=== PATIENT | male | born 1970 | race Caucasian/White ===

== ENCOUNTER → 2021-02-26 07:44 | Outpatient (CLI) | payer OTHER, SELFPAY ==
--- NOTE | ~2021-02-26 | US_ITS ---
EXAMINATION: US abdomen limited EXAM DATE: 02/26/2021 08:15 INDICATION: R79.89 - Other specified abnormal findings of blood chemistry. TECHNIQUE: Multiple grayscale and Doppler images of the abdomen right upper quadrant were obtained (b y a technologist who performed the scan) and subsequently reviewed. There is no prior study for jillian soria. FINDINGS: The pancreatic head and body are normal in appearance. The pancreatic tail is not visualized. There is echogenic liver parenchyma with poor penetration, hepatic steatosis. There are no focal liver le sions identified. There is no evidence of intrahepatic biliary duct dilation. Portal venous flow w as seen in the hepatopedal, normal direction and has normal Doppler waveform. No right-sided hydrone phrosis. Common bile duct measures 6 mm, which is normal. The gallbladder wall is normal in thickness, with ex pected amount of distention. No sonographic evidence of pericholecystic fluid. There is no cholelit hiases. Technologist performing exam reports patient did not demonstrate sonographic Avery's sign. Please note that this sign is less reliable in patients who have received pain medication. IMPRESSION: Hepatic steatosis. Reviewed, dictated and finalized at location D. IMPRESSION: Hepatic steatosis.
== END ==
PROVIDERS: PCP Family Medicine; Visit Provider Physician Assistant
DX: R79.89 Other specified abnormal findings of blood chemistry (principal); K76.0 Fatty (change of) liver, not elsewhere classified
CPT/HCPCS: 76705

== ENCOUNTER 2022-11-16 19:31 | Emergency (ER) | payer OTHER, SELFPAY ==
--- NOTE | ~2022-11-16 | XR_ITS ---
EXAMINATION: XR chest 2V Exam Date/Time: 11/16/2022 20:52 BUSINESS CHANGE MANAGER HISTORY: sob, HEART PALPATATIONS, HTN, DIABETIC Comparison: None available. RESULT: Lines, tubes, and devices: None. Lungs and pleura: Clear. Cardiomediastinal silhouette: Unremarkable. Other: No acute osseous or upper abdominal finding. IMPRESSION: No acute cardiopulmonary process. Reviewed, dictated and finalized at location K. NESS CHANGE MANAGER
[2022-11-16 19:50] VITALS: BP 139/91; PULSE 94; RESP 20; TEMP 36.5; O2SAT 93
--- NOTE | 2022-11-16 19:58 | ECG_ITS ---
Measurements Intervals [place] Rate: 86 P: 6 CA: 184 QRS: 40 QRSD: 109 T: -12 QT: 341 QTc: 408 Interpretive Statements SINUS RHYTHM EARLY PRECORDIAL R/S TRANSITION CONSIDER INFERIOR INFARCT, AGE INDETERMINATE BORDERLINE ST-T WAVE ABNORMALITY- ANTEROLATERAL LEADS ABNORMAL ECG NO PREVIOUS ECG AVAILABLE FOR COMPARISON Electronically Signed On 11-17-2022 7:02:31 GUNITE MIXER by Joseph Nolasco D.O.
[2022-11-16 20:09] VITALS: PULSE 85
[2022-11-16 20:35] LABS: Basophils Absolute Auto 0.1 K/mm3 (0.0-0.1); Basophils Percent Auto 0.8 % (0.2-1.2); Eosinophils Absolute Auto 0.3 K/mm3 (0-0.3); Hematocrit 46.6 % (42.0-52.0); Hemoglobin 16.5 g/dL (14.0-18.0); Immature Granulocyte Absolute 0.07 K/mm3 (0.00-0.031); Immature Granulocyte Percent A 0.7 % (0-0.5); Lymphocytes Absolute Auto 2.73 K/mm3 (0.9-3.2); Lymphocytes Percent Auto 25.4 % (18.3-44.2); Mean Corpuscular HGB Conc 35.4 g/dl (32-36); Mean Corpuscular Volume 95.9 fl (80-100); Mean Platelet Volume 9.8 fl (7.4-10.4); Monocytes Absolute Auto 1.2 K/mm3 (0.1-0.6); Monocytes Percent Auto 10.9 % (2.6-8.5); Neutrophils Absolute Auto 6.4 K/mm3 (1.3-6.7); Neutrophils Percent Auto 59.2 % (45.5-73.1); Platelet Count Result 330 k/mm3 (150-375); Red Blood Count 4.86 M/mm3 (4.6-6.20); Red Cell Distribution Width 11.8 % (11.5-14.5); White Blood Count 10.8 K/mm3 (4.5-10.0)
--- NOTE | 2022-11-16 20:49 | ED.ARRPALP ---
HPI - Arrhythmia/Palpitations General Chief Complaint: Arrhythmia/Palpitations Stated Complaint: heart palpitations Time Seen by Provider: 11/16/22 20:01 History of Present Illness HPI narrative: Patient is a 51-year-old male with a history of hypertension, diabetes presenting with palpitations. Patient states that for the last couple of days he has noticed intermittent palpitations. States that it feels like his heart is skipping beats. States that he has also noticed some mild dyspnea with exertion. He denies any chest pain or lightheadedness. No fevers or chills, cough, abdominal pain, nausea or vomiting, diarrhea, leg swelling. Related Data Allergies Allergy/AdvReac Type Severity Reaction Status Date / Time No Known Allergies Allergy Verified 11/16/22 19:52 Review of Systems Review of Systems: All systems reviewed & are unremarkable except as noted in HPI and below PMFSH Past Medical History Medical History Obesity Family History Family History Mother Family history of chronic obstructive pulmonary disease Social History Social History Smoking status: Former smoker Tobacco type: cigarettes Second hand tobacco smoke exposure: No Smoking end date: 10/23/04 Alcohol intake: current Substance use: never Substance use type: does not use Living arrangements: with family Occupation/Education: occupation Gender identity (if verbalized by the patient): Male Exam Narrative: GENERAL: Well-appearing, well-nourished, and in no acute distress. HEAD: Normocephalic, atraumatic. EYES: PERRLA and EOMI. ENT: Nares clear, no rhinorrhea or epistaxis. Mucous membranes moist. NECK: Supple. CHEST: Clear to auscultation. No respiratory distress. HEART: Regular rate and rhythm. No murmur heard. Normal peripheral pulses. ABDOMEN: Soft, nontender, nondistended, normal active bowel sounds. EXTREMITIES: Normal range of motion. No edema. SKIN: Warm, dry, no rash. NEURO: No focal deficits. Alert and oriented x3. PSYCH: Normal mood and affect. Course Vital Signs Vital signs: Vital Signs Temperature 97.7 F 11/16/22 19:50 Pulse Rate 94 11/16/22 19:50 Respiratory Rate 20 11/16/22 19:50 Blood Pressure 139/91 H 11/16/22 19:50 Pulse Oximetry 93 11/16/22 19:50 Oxygen Delivery Room Air 11/16/22 19:50 Temperature 97.7 F 11/16/22 19:50 Pulse Rate 82 11/16/22 22:24 Respiratory Rate 18 11/16/22 22:24 Blood Pressure 140/73 11/16/22 22:24 Pulse Oximetry 98 11/16/22 22:24 Oxygen Delivery Room Air 11/16/22 19:50 MDM - Arrhythmia/Palpitations MDM Narrative Medical decision making narrative: Patient is a 51-year-old male presenting with palpitations. Patient does slightly hypertensive, otherwise vitals are within normal limits. Exam is unremarkable. EKG per my interpretation shows normal sinus rhythm, normal axis and intervals, inferior Q waves, nonspecific T wave flattening, no ST elevations or depressions. Appears similar to prior EKG in our system. Patient looks dry on labs. Magnesium is low. This was repleted and patient was given a liter of fluids. Troponin is undetectable. Chest x-ray with no acute abnormalities. Vital signs have remained within normal limits. Discussed the reassuring work-up with the patient. Advised that he try to increase his oral intake. Advised that he follow-up closely with his PCP. Appropriate return precautions given. Patient voiced understanding and was agreeable with plan. Discharged in stable condition. Differential Diagnosis Differential diagnosis: Likely palpitations, anxiety, artial fibrillation, artial flutter and other (dehydration, electrolyte abnormalities) Lab Data 11/16/22 20:29 11/16/22 20:29 Labs: Lab Results 11/16/22
[2022-11-16 20:51] LABS: Alanine Aminotransferase 152 U/L (6-50); Albumin Level 4.4 g/dL (3.5-5.1); Alkaline Phosphatase 83 U/L (38-126); Anion Gap 12 mmol/L (8-16); Aspartate Amino Transferase 68 U/L (17-59); Bilirubin,Total 0.6 mg/dL (0.2-1.3); Blood Urea Nitrogen 30 mg/dL (9-20); Calcium 9.5 mg/dL (8.4-10.2); Carbon Dioxide 21 mmol/L (22-30); Chloride 102 mmol/L (98-107); Estimated CRCL calculation 90 ml/min; Estimated Glomerular Filt Rate > 60; Glucose 146 mg/dL (65-110); Magnesium 1.5 mg/dL (1.6-2.3); Potassium 3.6 mmol/L (3.4-5.0); Sodium 135 mmol/L (137-145)
[2022-11-16 21:12] LABS: Troponin I < 0.012 ng/mL (0.000-0.034)
[2022-11-16] MEDS: MAGNESIUM OXIDE 400 MG TABLET PO (21:14)
[2022-11-16] MEDS: SODIUM CHLORIDE 0.9% IV 1,000 ML 999 ML IV CONT (21:18)
[2022-11-16 22:24] VITALS: BP 140/73; PULSE 82; RESP 18; O2SAT 98
== END 2022-11-16 22:25 | disposition home or self-care (01) ==
PROVIDERS: Emergency Provider Emergency Medicine; PCP Family Medicine
DX: E83.42 Hypomagnesemia (principal); R00.2 Palpitations
CPT/HCPCS: 36415; 71046; 80053; 83735; 84484; 85025; 93005; 96360; 99284; A9270; J7030

== ENCOUNTER 2023-11-04 14:53 | Emergency (ER) | payer OTHER, SELFPAY ==
--- NOTE | ~2023-11-04 | XR_ITS ---
Portable chest x-ray Comparison: 11/16/2022 Clinical History: Tachycardia Findings: Lungs are clear, without focal consolidation or pleural effusion. Cardiomediastinal silho uette is stable. Bones and soft tissues are unremarkable. Impression: Normal chest. Reviewed, dictated and finalized at [facility]. K SCOURER Impression: Normal chest.
--- NOTE | 2023-11-04 14:54 | ED.ARRPALP ---
HPI - Arrhythmia/Palpitations General Chief Complaint: Arrhythmia/Palpitations Stated Complaint: increased HR Time Seen by Provider: 11/04/23 14:54 Source: patient Mode of arrival: ambulatory Limitations: no limitations History of Present Illness HPI narrative: Archie is a 52-year-old male patient presenting to the ER today for complaints of some palpitations that started a couple hours ago. He did have some associated shortness of breath when this episode occurred. Reports that he is not having palpitations or shortness of breath currently. Blood pressure is elevated initially at 192/89. States when this happened last time he was dehydrated has magnesium level was off. History of hypertension and diabetes. No history of hypercholesterolemia. Blood sugar was 145 at bedside. States he does drink whiskey a couple times a week. Last drink last night and states he had 5-6 whiskeys. He does not smoke tobacco or vaping. He does not smoke marijuana. Denies drinking any energy drinks. Related Data Allergies Allergy/AdvReac Type Severity Reaction Status Date / Time No Known Allergies Allergy Verified 10/19/23 15:50 Review of Systems Review of Systems: Pertinent positives per HPI. Patient denies any fever, chills, rash, headache, visual changes, dizziness, cough, runny nose, sore throat, nausea, vomiting, diarrhea, constipation, abdominal pain, or any urinary issues. PMFSH Past Medical History Medical History Obesity Family History Family History Mother Family history of chronic obstructive pulmonary disease Social History Social History Smoking status: Former smoker Tobacco type: cigarettes Second hand tobacco smoke exposure: No Smoking end date: 10/23/04 Alcohol intake: current Substance use: never Substance use type: does not use Living arrangements: with family Occupation/Education: occupation Gender identity (if verbalized by the patient): Male Comments At the time of my signature, I reviewed and agree with the nursing past medical, surgical, social, and family history. There is no relevant family history pertinent to the patient complaint. Exam Narrative: General: Well-developed, well nourished, in no apparent distress Head: Normocephalic, atraumatic. Cardio: Regular rate and rhythm, s1 and s2 normal, no murmur appreciated. Resp: Clear to auscultation bilaterally, no rhonchi, rales, wheezing or rubs. Extremities: No deformity, no edema, no cyanosis, capillary refill less than 2 seconds, peripheral pulses palpable and strong. Integumentary: [place], warm, and dry, intact without lesion, no rashes. Psych:Appropriate mood and affect, anxious appearing, intact judgment Course Course Emergency Course: Portions of this record may have been created with voice recognition software. Vital Signs Vital signs: Vital signs reviewed MDM - Arrhythmia/Palpitations MDM Narrative Medical decision making narrative: At the time of visit patient is resting comfortably on the exam table. Patient appears to be nontoxic. Denies palpitations, chest pain, or shortness of breath at initial exam. EKG: Normal sinus rhythm with heart rate of 94 beats per minute without ST elevation or depression, no T-wave inversion noted. Labs: CBC shows white blood cell count of 13.4, H&H of 16.4 and 48.7, platelet count is 412, chemistry shows sodium of 139, potassium of 3.8, and chloride of 102, BUN 16 and creatinine 0.90 with a GFR greater than 60, blood glucose is 144, AST is normal at 42 with a slight elevation of ALT 68, alk-phos is 102, lipase 93, magnesium 1.9, troponin less than 0.012, anti coagulation studies are within normal limits, urinalysis is negative for any sign of infection, protein, blood, or dehydration Diagnostics: Chest
--- NOTE | 2023-11-04 14:55 | ECG_ITS ---
Measurements Intervals [place] Rate: 94 P: -21 MI: 194 QRS: 26 QRSD: 97 T: -17 QT: 349 QTc: 438 Interpretive Statements SINUS RHYTHM EARLY PRECORDIAL R/S TRANSITION CONSIDER INFERIOR INFARCT, AGE INDETERMINATE BORDERLINE ST-T WAVE ABNORMALITY- ANTEROLATERAL LEADS BASELINE ARTIFACT- II, V3-V4 ABNORMAL ECG COMPARED TO ECG 11/16/2022 20:02:46 NO SIGNIFICANT CHANGES Electronically Signed On 11-04-2023 15:16:11 TREATER HELPER by Joseph Nolasco D.O.
[2023-11-04 14:57] VITALS: BP 192/89; PULSE 96; RESP 20; TEMP 36.8; O2SAT 98
[2023-11-04 15:08] LABS: Basophils Absolute Auto 0.1 K/mm3 (0.0-0.1); Basophils Percent Auto 0.6 % (0.2-1.2); Eosinophils Absolute Auto 0.4 K/mm3 (0-0.3); Eosinophils Percent Auto 2.7 % (0-4.4); Hematocrit 48.7 % (42.0-52.0); Hemoglobin 16.4 g/dL (14.0-18.0); Immature Granulocyte Absolute 0.13 K/mm3 (0.00-0.031); Lymphocytes Absolute Auto 2.32 K/mm3 (0.9-3.2); Lymphocytes Percent Auto 17.3 % (18.3-44.2); Mean Corpuscular HGB Conc 33.7 g/dl (32-36); Mean Corpuscular Hemoglobin 33.2 pg (26-34); Mean Corpuscular Volume 98.6 fl (80-100); Mean Platelet Volume 9.2 fl (7.4-10.4); Monocytes Percent Auto 7.3 % (2.6-8.5); Neutrophils Absolute Auto 9.5 K/mm3 (1.3-6.7); Neutrophils Percent Auto 71.1 % (45.5-73.1); Platelet Count Result 412 k/mm3 (150-375); Red Blood Count 4.94 M/mm3 (4.6-6.20); Red Cell Distribution Width 11.8 % (11.5-14.5); White Blood Count 13.4 K/mm3 (4.5-10.0)
[2023-11-04 15:09] LABS: Appearance Urine Clear (Clear); Bilirubin Urine Negative (Negative); Blood Urine Negative (Negative); Color Urine Yellow (Yellow); Glucose Urine UA Negative (Negative); Ketones Urine Negative (Negative); Leukocyte Esterase Ur Negative LEU/UL (Negative); Nitrate Urine Negative (Negative); Protein Urine Negative (Negative); Specific Grav Ur 1.004 (1.001-1.035); Urobilinogen Urine 0.2 mg/dL (<2.0)
[2023-11-04] MEDS: ASPIRIN 81 MG CHEWABLE TABLET 324 MG PO (15:09)
[2023-11-04 15:14] LABS: Glucose Point of Care 145 mg/dl (65-105)
[2023-11-04 15:18] LABS: Add Urine Microscopic? NO
[2023-11-04 15:22] LABS: Alanine Aminotransferase 68 U/L (6-50); Albumin Level 4.7 g/dL (3.5-5.1); Alkaline Phosphatase 102 U/L (38-126); Anion Gap 13 mmol/L (8-16); Aspartate Amino Transferase 42 U/L (17-59); Bilirubin,Total 0.4 mg/dL (0.2-1.3); Blood Urea Nitrogen 16 mg/dL (9-20); Calcium 9.2 mg/dL (8.4-10.2); Carbon Dioxide 24 mmol/L (22-30); Chloride 102 mmol/L (98-107); Estimated CRCL calculation 116 ml/min; Estimated Glomerular Filt Rate > 60; Glucose 144 mg/dL (65-110); Lipase 93 U/L (23-300); Potassium 3.8 mmol/L (3.4-5.0); Sodium 139 mmol/L (137-145)
[2023-11-04] MEDS: LORazepam INJ (*CRX) 2 MG/ML VIAL 1 MG IV PUSH (15:24)
[2023-11-04] MEDS: SODIUM CHLORIDE 0.9% IV 1,000 ML 150 ML IV CONT (15:24)
[2023-11-04 15:26] LABS: Prothrombin Time 13.6 Seconds (11.1-14.7)
[2023-11-04 15:27] LABS: Partial Thromboplastin Time 29.8 SECONDS (22.3-36.8)
[2023-11-04 15:31] LABS: Magnesium 1.9 mg/dL (1.6-2.3)
[2023-11-04 15:34] LABS: Troponin I < 0.012 ng/mL (0.000-0.034)
[2023-11-04 15:46] VITALS: BP 146/81; PULSE 105; RESP 19; O2SAT 96
[2023-11-04 16:01] VITALS: BP 142/85; PULSE 105; RESP 21; O2SAT 95
[2023-11-04 16:16] VITALS: BP 154/84; PULSE 105; RESP 21; O2SAT 94
[2023-11-04 16:31] VITALS: BP 146/99; PULSE 105; RESP 17; O2SAT 97
[2023-11-04 16:46] VITALS: BP 138/98
== END 2023-11-04 16:51 | disposition home or self-care (01) ==
PROVIDERS: Emergency Medicine; Emergency Provider Nurse Practitioner Family; PCP Family Medicine
DX: R00.2 Palpitations (principal); F41.9 Anxiety disorder, unspecified; F10.90 Alcohol use, unspecified, uncomplicated; I10 Essential (primary) hypertension; E11.9 Type 2 diabetes mellitus without complications; E66.9 Obesity, unspecified; Z68.31 Body mass index [BMI] 31.0-31.9, adult; Z87.891 Personal history of nicotine dependence; Z79.84 Long term (current) use of oral hypoglycemic drugs; R94.31 Abnormal electrocardiogram [ECG] [EKG]
CPT/HCPCS: 36415; 71045; 80053; 81003; 82948; 83690; 83735; 84484; 85025; 85610; 85730; 93005; 96361; 96374; 99284; A9270; J2060; J7030